=== PATIENT | female | born 1995 | race Caucasian/White ===

== ENCOUNTER 2017-01-28 08:00 | Inpatient (IN) | payer OTHER ==
[2017-01-28] MEDS ORDERED: AMPICILLIN - 2 GM in SODIUM CHLORIDE 100 ML IVPB ONE (09:30)
[2017-01-28 09:45] LABS: BASOPHIL 0.5 % (0-2.0); EOSINOPHIL 0.2 % (0-4.5); MCH 29.9 pg (25.7-33.7); MCHC 33.1 g/dl (32.0-36.0); MEAN CELL VOLUME 90.4 fl (80-96); MEAN PLT VOLUME 8.7 fl (7.5-11.1); NEUTROPHILS 82.7 % (42.8-82.8); PLATELET COUNT 236 K/MM3 (134-434)
[2017-01-28 09:59] VITALS: BMI 22.6
[2017-01-28] MEDS ORDERED: TUBERCULIN PPD 5 TU/0.1ML SYRINGE (IN PATIENT USE ONLY) ID ONE (10:00)
[2017-01-28 10:08] LABS: ANION GAP 9 (8-16); BILIRUBIN,TOTAL 0.2 mg/dL (0.2-1.0); CALCIUM 9.3 mg/dL (8.5-10.1); CO2 22 mmol/L (21-32); CREATININE 0.4 mg/dL (0.55-1.02); GLUCOSE,RANDOM 82 mg/dL (74-106); SGOT/AST 15 U/L (15-37); SGPT/ALT 14 U/L (12-78)
[2017-01-28 10:09] LABS: ALK PHOS 199 U/L (45-117); INR 1.02 (0.82-1.09); PROTHROMBIN TIME (PATIENT) 11.2 SEC (9.98-11.88)
[2017-01-28 10:11] LABS: ACTIVATED PTT 31.1 SECONDS (26.9-34.4)
[2017-01-28] MEDS ORDERED: ELECTROLYTE-148 SOLN 1,000 ML IV SCH (10:15)
[2017-01-28] MEDS ORDERED: PROMETHAZINE HCL 25 MG/1 ML VIAL IVPUSH ONE (10:39)
[2017-01-28] MEDS ORDERED: DEXTROSE 5%-LACTATED RINGERS 1,000 ML IV SCH (10:45)
[2017-01-28] MEDS ORDERED: BUTORPHANOL TARTRATE 1 MG/ML VIAL IVPB ONE (10:45)
--- NOTE | 2017-01-28 11:08 | HP ---
Past Medical History - Admission Chief Complaint: Labor pain History of Present Illness: 21 yo @ 38.6 weeks gestation presents c/o contractions pain. EDC 02/05/17 She denies any rupture of membrane nor vaginal bleeding. History Source: Patient Limitations to Obtaining History: No Limitations - Past Medical History ...: 1 ...Para: 0 ...Term: 0 ...: 0 ...Spon : 0 ...Induced : 0 ...Multiple Gestation: 0 ...LMP: 05/01/17 ... Weeks Gestation by Dates: 38.6 ...EDC by Dates: 02/05/17 ...EDC by Sono: 02/05/17 - Past Surgical History Past Surgical History: Yes: None Hx Myomectomy: No Hx Transabdominal Cerclage: No - Smoking History Smoking history: Never smoked Have you smoked in the past 12 months: No - Alcohol/Substance Use Hx Alcohol Use: No - Social History Usual Living Arrangement: Yes: With Spouse History of Recent Travel: No Home Medications - Allergies Allergies/Adverse Reactions: Allergies Allergy/AdvReac Type Severity Reaction Status Date / Time No Known Allergies Allergy Verified 01/28/17 09:22 - Home Medications Home Medications: Ambulatory Orders Vit No.130/Iron/FA [ Vitamins] 1 each PO DAILY 01/28/17 Family Disease History - Family Disease History Family History: Unremarkable Review of Systems - Review of Systems Constitutional: reports: No Symptoms Eyes: reports: No Symptoms HENT: reports: No Symptoms Neck: reports: No Symptoms Cardiovascular: reports: No Symptoms Respiratory: reports: No Symptoms Gastrointestinal: reports: No Symptoms Genitourinary: reports: Pain Breasts: reports: No Symptoms Reported Musculoskeletal: reports: No Symptoms Integumentary: reports: No Symptoms Neurological: reports: No Symptoms Endocrine: reports: No Symptoms Hematology/Lymphatic: reports: No Symptoms Psychiatric: reports: No Symptoms Pain Intensity: 7 Physical Exam - Maternity Vital Signs: Vital Signs Temperature 98.2 F 01/28/17 10:00 Pulse Rate 97 H 01/28/17 10:00 Respiratory Rate 18 01/28/17 10:00 Blood Pressure 122/71 01/28/17 10:00 O2 Sat by Pulse Oximetry (%) Constitutional: Yes: Well Nourished Eyes: Yes: Conjunctiva Clear HENT: Yes: Atraumatic Neck: Yes: Supple Cardiovascular: Yes: Regular Rate and Rhythm Lungs: Clear to auscultation Breast(s): Yes: WNL - Abdominal Exam/OB Number of Fetuses: Single Presentation: Vertex Contractions: Yes Intensity: Moderate - Vaginal Exam/OB Vaginal Bleediing: No Speculum Exam: No Dilatation (cm): 4 Effacement (%): 80 Amniotic Membrane Status: Intact Station: -2 - Physical Exam Musculoskeletal: Yes: WNL Extremities: Yes: WNL ...Motor Strength: WNL Psychiatric: Yes: Alert, Oriented - Labs Lab Results: CBC, BMP 01/28/17 09:30 01/28/17 09:30 Problem List - Problems (1) Pain during labor Code(s): O99.89 - OTH DISEASES AND CONDITIONS COMPL PREG/CHLDBRTH R52 - PAIN, UNSPECIFIED Assessment/Plan Active Labor GBS prophylaxis Analgesia PRN pain Pitocin augmentation Anticpate
[2017-01-28] MEDS ORDERED: OXYTOCIN 15 UNITS/ LR 250 ML 250 ML IVPB SCH (11:15)
[2017-01-28 11:35] LABS: HIV 1 & 2 AB NEGATIVE; HIV 1 AGp24 NEGATIVE
[2017-01-28] MEDS: AMPICILLIN - 1 GM in SODIUM CHLORIDE 100 ML IVPB SCH ×3 (13:30→21:30)
[2017-01-28] MEDS ORDERED: FENTANYL/BUPIVACAINE/NS/PF - PCEA - 50 ML DISP.SYRIN EP SCH (15:15)
[2017-01-28] MEDS ORDERED: METHYLERGONOVINE MALEATE 0.2 MG/1 ML AMP IM PRN (20:29)
[2017-01-28] MEDS ORDERED: BENZOCAINE 28 GM HEMORRHOIDAL OINTMENT TP PRN (20:29)
[2017-01-28] MEDS ORDERED: BENZOCAINE 20% 57 GM BOTTLE TP PRN (20:29)
[2017-01-28] MEDS ORDERED: BISACODYL 10 MG SUPP.RECT RC PRN (20:29)
[2017-01-28] MEDS ORDERED: WITCH HAZEL 50% (TUCKS) 40 PAD/JAR PAD TP PRN (20:29)
[2017-01-28] MEDS ORDERED: D5W-LR W/ 20 UNITS OXYTOCIN 1,000 ML IV SCH (20:30)
--- NOTE | 2017-01-28 20:31 | PN ---
Delivery - Delivery Vaginal Delivery: Vacuum Extraction Type of Anesthesia: Epidural EBL (cc): 250 Delivery, Single - Feeding Plan Initial Plan: Exclusive throughout hospitalization Remarks - Remarks Remarks: Mother exhausted after pushing for 2 hours. Fully dilated head at +1 position. Midline episiotomy performed Vacuum applied assuring no surrounding tissue trapped under the vacuum. After 3 pulls and 2 Pop offs head delivered. Nuchal cord x 1 clamped and cut. Baby handed to waiting neonatology nurses. Placenta expelled spontaneously intact. Midline episiotomy repaired in layers with 2.0 Chromic.
--- NOTE | 2017-01-28 20:34 | DS ---
Physical Exam-[employer] Vital Signs: Vital Signs Temperature 99.6 F 01/28/17 18:00 Pulse Rate 103 H 01/28/17 18:45 Respiratory Rate 18 01/28/17 18:45 Blood Pressure 134/85 01/28/17 18:45 O2 Sat by Pulse Oximetry (%) 98 01/28/17 18:45 Constitutional: Yes: Well Nourished Eyes: Yes: Conjunctiva Clear HENT: Yes: Atraumatic Neck: Yes: Supple, Trachea Midline Cardiovascular: Yes: Regular Rate and Rhythm Respiratory: Yes: Regular, CTA Bilaterally Gastrointestinal: Yes: Normal Bowel Sounds ...Rectal Exam: Yes: WNL Renal/: Yes: WNL Pelvis: Yes: WNL External Genitalia: Yes: Normal Vaginal Exam: Yes: Normal Cervix: Yes: Normal Uterus: Yes: Normal ....Post : Yes: Uterus firm, Moderate lochia serosa Breast(s): Yes: WNL (No engorgement) Neurological: Yes: Alert, Oriented Psychiatric: Yes: Alert, Oriented Labs: CBC, BMP 01/28/17 09:30 01/28/17 09:30 Delivery - Delivery Vaginal Delivery: Spontaneous Type of Anesthesia: Epidural Delivery, Single - Feeding Plan Initial Plan: Exclusive throughout hospitalization Remarks - Remarks Remarks: of a live Nose / oropharynx suctioned @ perineum Cord clamped and cut Placenta expelled spontaneously intact. Discharge Summary Reason For Visit: LABOR Current Active Problems Pain during labor (Acute) Procedures: Principal: Vacuum delivery Hospital Course: Routine care Condition: Good - Instructions Diet, Activity, Other Instructions: Regular diet No douching, no sexual intercourse x 6 weeks F/U in clinic in 6 weeks Disposition: HOME - Home Medications Comprehensive Discharge Medication List: Ambulatory Orders Vit No.130/Iron/FA [ Vitamins] 1 each PO DAILY 01/28/17
[2017-01-28] MEDS: oxyCODONE HCL 5 MG TABLET PO PRN (21:35)
[2017-01-28] MEDS: ACETAMINOPHEN 325 MG TABLET (FP) PO PRN (23:20)
[2017-01-28] MEDS: IBUPROFEN 600 MG TABLET (FP) PO PRN (23:20)
[2017-01-29] MEDS: AMPICILLIN - 1 GM in SODIUM CHLORIDE 100 ML IVPB SCH (01:30)
[2017-01-29] MEDS: oxyCODONE HCL 5 MG TABLET PO PRN ×2 (06:27→10:39)
[2017-01-29] MEDS: IBUPROFEN 600 MG TABLET (FP) PO PRN ×4 (06:30→21:04)
[2017-01-29 08:47] LABS: MCH 29.5 pg (25.7-33.7); MCHC 32.9 g/dl (32.0-36.0); MEAN CELL VOLUME 89.7 fl (80-96); MEAN PLT VOLUME 8.7 fl (7.5-11.1); PLATELET COUNT 228 K/MM3 (134-434); RDW 14.3 % (11.6-15.6); WHITE BLOOD COUNT 23.4 K/mm3 (4.0-10.0)
[2017-01-29] MEDS: PRENATAL VITAMINS W/ FOLIC ACID TABLET (FP) PO SCH (09:54)
[2017-01-29] MEDS: FERROUS SO4 325 MG TABLET (FP) PO SCH ×3 (09:55→17:50)
[2017-01-29 12:41] LABS: PLATELET ESTIMATE ADEQUATE (NORMAL)
--- NOTE | 2017-01-29 13:31 | PN ---
Post Progress Note - Subjective Subjective: 21 yo Para 1, status post vacuum delivery, seen and evaluated. She's afebrile. She's bottle feeding. Post Day: 1 Type of Delivery: Vacuum Assist Vag Del Vital Signs: Vital Signs Temperature 98.0 F 01/29/17 09:00 Pulse Rate 88 01/29/17 09:00 Respiratory Rate 20 01/29/17 09:00 Blood Pressure 119/76 01/29/17 09:00 O2 Sat by Pulse Oximetry (%) 97 01/28/17 20:15 Breast Exam: Yes: Soft Uterus: Yes: Fundus Firm Abdomen/GI: Yes: Abdomen soft, Tolerating PO Lochia: Yes: Rubra Lochia, amount: Moderate Extremities: Yes: Calves non-tender Perineum: Yes: Episiotomy (Swollen perineum) Activity: Ambulating - Labs Labs: CBC WBC 23.4 K/mm3 (4.0-10.0) H D 01/29/17 08:10 RBC 4.02 M/mm3 (3.60-5.2) 01/29/17 08:10 Hgb 11.9 GM/dL (10.7-15.3) 01/29/17 08:10 Hct 36.1 % (32.4-45.2) 01/29/17 08:10 MCV 89.7 fl (80-96) 01/29/17 08:10 MCHC 32.9 g/dl (32.0-36.0) 01/29/17 08:10 RDW 14.3 % (11.6-15.6) 01/29/17 08:10 Plt Count 228 K/MM3 (134-434) 01/29/17 08:10 MPV 8.7 fl (7.5-11.1) 01/29/17 08:10 Neutrophils % 83.0 % (42.8-82.8) H 01/29/17 08:10 Lymphocytes % 14.0 % (8-40) 01/29/17 08:10 Monocytes % 3.0 % (3.8-10.2) L 01/29/17 08:10 Eosinophils % 0.2 % (0-4.5) 01/28/17 09:30 Basophils % 0.5 % (0-2.0) 01/28/17 09:30 Differential Comment Manual diff done 01/29/17 08:10 Platelet Estimate Adequate (NORMAL) 01/29/17 08:10 RBC Morphology Appears normal 01/29/17 08:10 Morphology Comment Slide scanned 01/29/17 08:10 Problem List - Problems (1) Pain during labor Code(s): O99.89 - OTH DISEASES AND CONDITIONS COMPL PREG/CHLDBRTH R52 - PAIN, UNSPECIFIED Assessment/Plan Status post vacuum delivery Swollen perineum Leukocytosis Shannon catheter IV Ancef
[2017-01-29] MEDS: ACETAMINOPHEN 325 MG TABLET (FP) PO PRN ×2 (16:22→21:02)
[2017-01-29] MEDS: CEFAZOLIN (PRE-DOCKED) 50 ML IVPB SCH (17:51)
[2017-01-29] MEDS: SENNOSIDES/DOCUSATE COMBO (SENNA PLUS) TABLET (UD) PO PRN (21:05)
[2017-01-30] MEDS: CEFAZOLIN (PRE-DOCKED) 50 ML IVPB SCH ×2 (01:25→09:31)
[2017-01-30] MEDS: IBUPROFEN 600 MG TABLET (FP) PO PRN ×5 (05:25→21:36)
[2017-01-30] MEDS: ACETAMINOPHEN 325 MG TABLET (FP) PO PRN ×5 (05:25→21:37)
[2017-01-30] MEDS: FERROUS SO4 325 MG TABLET (FP) PO SCH ×3 (07:49→17:42)
--- NOTE | 2017-01-30 08:40 | PN ---
Post Progress Note - Subjective Subjective: 21 yo Para 1 status post vacuum delivery, seen and evaluated. She c/o perineal pain. She tolerates PO diet. Type of Delivery: Vacuum Assist Vag Del Vital Signs: Vital Signs Temperature 98.7 F 01/30/17 05:29 Pulse Rate 82 01/30/17 05:29 Respiratory Rate 20 01/30/17 05:29 Blood Pressure 112/69 01/30/17 05:29 O2 Sat by Pulse Oximetry (%) 97 01/28/17 20:15 Breast Exam: Yes: Soft Uterus: Yes: Fundus Firm Abdomen/GI: Yes: Abdomen soft, Tolerating PO Lochia: Yes: Rubra Lochia, amount: Small Extremities: Yes: Calves non-tender Perineum: Yes: Episiotomy (Swollen perineum) Activity: Other (She's lying in bed) - Labs Labs: CBC WBC 23.4 K/mm3 (4.0-10.0) H D 01/29/17 08:10 RBC 4.02 M/mm3 (3.60-5.2) 01/29/17 08:10 Hgb 11.9 GM/dL (10.7-15.3) 01/29/17 08:10 Hct 36.1 % (32.4-45.2) 01/29/17 08:10 MCV 89.7 fl (80-96) 01/29/17 08:10 MCHC 32.9 g/dl (32.0-36.0) 01/29/17 08:10 RDW 14.3 % (11.6-15.6) 01/29/17 08:10 Plt Count 228 K/MM3 (134-434) 01/29/17 08:10 MPV 8.7 fl (7.5-11.1) 01/29/17 08:10 Neutrophils % 83.0 % (42.8-82.8) H 01/29/17 08:10 Lymphocytes % 14.0 % (8-40) 01/29/17 08:10 Monocytes % 3.0 % (3.8-10.2) L 01/29/17 08:10 Eosinophils % 0.2 % (0-4.5) 01/28/17 09:30 Basophils % 0.5 % (0-2.0) 01/28/17 09:30 Differential Comment Manual diff done 01/29/17 08:10 Platelet Estimate Adequate (NORMAL) 01/29/17 08:10 RBC Morphology Appears normal 01/29/17 08:10 Morphology Comment Slide scanned 01/29/17 08:10 Problem List - Problems (1) Pain during labor Code(s): O99.89 - OTH DISEASES AND CONDITIONS COMPL PREG/CHLDBRTH R52 - PAIN, UNSPECIFIED Assessment/Plan Status post vacuum delivery Swollen perineum Status post IV antibiotic Repeat CBC Keep Shannon catheter Ambulation Re-evaluate later
[2017-01-30] MEDS: PRENATAL VITAMINS W/ FOLIC ACID TABLET (FP) PO SCH (09:30)
[2017-01-30] MEDS ORDERED: DIPHTH,PERTUSS(ACELL),TET 0.5 ML DISP.SYRIN IM ONE (10:00)
[2017-01-30 10:06] LABS: BASOPHIL 0.3 % (0-2.0); EOSINOPHIL 0.7 % (0-4.5); MCH 30.3 pg (25.7-33.7); MCHC 33.5 g/dl (32.0-36.0); MEAN CELL VOLUME 90.5 fl (80-96); MEAN PLT VOLUME 8.3 fl (7.5-11.1); NEUTROPHILS 79.1 % (42.8-82.8); PLATELET COUNT 205 K/MM3 (134-434); RDW 14.2 % (11.6-15.6); WHITE BLOOD COUNT 13.8 K/mm3 (4.0-10.0)
[2017-01-30] MEDS: SENNOSIDES/DOCUSATE COMBO (SENNA PLUS) TABLET (UD) PO PRN (21:36)
[2017-01-31] MEDS: ACETAMINOPHEN 325 MG TABLET (FP) PO PRN ×5 (02:53→21:54)
[2017-01-31] MEDS: IBUPROFEN 600 MG TABLET (FP) PO PRN ×4 (02:54→21:53)
--- NOTE | 2017-01-31 07:07 | PN ---
Post Progress Note - Subjective Subjective: 21 yo status post vacuum delivery, seen and evaluated. Doing well except for swollen perineum. Post Day: 3 Type of Delivery: Vacuum Assist Vag Del Vital Signs: Vital Signs Temperature 98.5 F 01/30/17 22:00 Pulse Rate 107 H 01/30/17 22:00 Respiratory Rate 20 01/30/17 22:00 Blood Pressure 115/70 01/30/17 22:00 O2 Sat by Pulse Oximetry (%) 97 01/28/17 20:15 Breast Exam: Yes: Soft Uterus: Yes: Fundus Firm Abdomen/GI: Yes: Abdomen soft, Tolerating PO Lochia: Yes: Rubra Lochia, amount: Small Extremities: Yes: Calves non-tender Perineum: Yes: Episiotomy (Healing wound but swollen vulva) Activity: Other (She's lying in bed with pfeiffer catheter in place) - Labs Labs: CBC WBC 13.8 K/mm3 (4.0-10.0) H D 01/30/17 09:30 RBC 3.42 M/mm3 (3.60-5.2) L 01/30/17 09:30 Hgb 10.4 GM/dL (10.7-15.3) L D 01/30/17 09:30 Hct 30.9 % (32.4-45.2) L 01/30/17 09:30 MCV 90.5 fl (80-96) 01/30/17 09:30 MCHC 33.5 g/dl (32.0-36.0) 01/30/17 09:30 RDW 14.2 % (11.6-15.6) 01/30/17 09:30 Plt Count 205 K/MM3 (134-434) 01/30/17 09:30 MPV 8.3 fl (7.5-11.1) 01/30/17 09:30 Neutrophils % 79.1 % (42.8-82.8) 01/30/17 09:30 Lymphocytes % 15.4 % (8-40) 01/30/17 09:30 Monocytes % 4.5 % (3.8-10.2) 01/30/17 09:30 Eosinophils % 0.7 % (0-4.5) D 01/30/17 09:30 Basophils % 0.3 % (0-2.0) 01/30/17 09:30 Differential Comment Manual diff done 01/29/17 08:10 Platelet Estimate Adequate (NORMAL) 01/29/17 08:10 RBC Morphology Appears normal 01/29/17 08:10 Morphology Comment Slide scanned 01/29/17 08:10 Problem List - Problems (1) Pain during labor Code(s): O99.89 - OTH DISEASES AND CONDITIONS COMPL PREG/CHLDBRTH R52 - PAIN, UNSPECIFIED (2) Status post vacuum-assisted vaginal delivery Code(s): Z87.42 - PERSONAL HISTORY OF OTH DISEASES OF THE FEMALE GENITAL TRACT (3) Swelling of perineal tissue Code(s): R22.2 - LOCALIZED SWELLING, MASS AND LUMP, TRUNK Assessment/Plan Status post vacuum assisted vaginal delivery. Swollen perineal tissue D/C Pfeiffer catheter Ambulation Continue observation
[2017-01-31] MEDS: FERROUS SO4 325 MG TABLET (FP) PO SCH ×3 (08:24→17:30)
[2017-01-31 08:28] LABS: BASOPHIL 0.4 % (0-2.0); EOSINOPHIL 1.4 % (0-4.5); MCH 30.4 pg (25.7-33.7); MCHC 33.8 g/dl (32.0-36.0); MEAN CELL VOLUME 90.1 fl (80-96); MEAN PLT VOLUME 8.2 fl (7.5-11.1); NEUTROPHILS 76.2 % (42.8-82.8); PLATELET COUNT 245 K/MM3 (134-434); WHITE BLOOD COUNT 10.7 K/mm3 (4.0-10.0)
[2017-01-31] MEDS: PRENATAL VITAMINS W/ FOLIC ACID TABLET (FP) PO SCH (09:32)
[2017-01-31] MEDS: SENNOSIDES/DOCUSATE COMBO (SENNA PLUS) TABLET (UD) PO PRN (21:53)
[2017-02-01] MEDS: ACETAMINOPHEN 325 MG TABLET (FP) PO PRN ×3 (02:36→14:02)
[2017-02-01] MEDS: IBUPROFEN 600 MG TABLET (FP) PO PRN ×2 (02:36→14:02)
--- NOTE | 2017-02-01 07:11 | PN ---
Post Progress Note - Subjective Subjective: pt feels better voiding without difficulty .. no c/o perineal pain Post Day: 4 Type of Delivery: Vacuum Assist Vag Del Vital Signs: Vital Signs Temperature 97.7 F 01/31/17 21:31 Pulse Rate 86 01/31/17 21:31 Respiratory Rate 20 01/31/17 21:31 Blood Pressure 110/79 01/31/17 21:31 O2 Sat by Pulse Oximetry (%) 97 01/28/17 20:15 Breast Exam: Yes: Soft, Other (BF ). No: Engorged Uterus: Yes: Fundus Firm, Fundus below umbilicus, Non-tender Lochia: Yes: Rubra Lochia, amount: Moderate Extremities: Yes: Calves non-tender Perineum: Yes: Episiotomy (vulva edema markedly less . still present ) Activity: Ambulating - Labs Labs: CBC WBC 10.7 K/mm3 (4.0-10.0) H 01/31/17 07:30 RBC 3.80 M/mm3 (3.60-5.2) 01/31/17 07:30 Hgb 11.6 GM/dL (10.7-15.3) D 01/31/17 07:30 Hct 34.3 % (32.4-45.2) 01/31/17 07:30 MCV 90.1 fl (80-96) 01/31/17 07:30 MCHC 33.8 g/dl (32.0-36.0) 01/31/17 07:30 RDW 14.0 % (11.6-15.6) 01/31/17 07:30 Plt Count 245 K/MM3 (134-434) 01/31/17 07:30 MPV 8.2 fl (7.5-11.1) 01/31/17 07:30 Neutrophils % 76.2 % (42.8-82.8) 01/31/17 07:30 Lymphocytes % 17.4 % (8-40) 01/31/17 07:30 Monocytes % 4.6 % (3.8-10.2) 01/31/17 07:30 Eosinophils % 1.4 % (0-4.5) D 01/31/17 07:30 Basophils % 0.4 % (0-2.0) 01/31/17 07:30 Differential Comment Manual diff done 01/29/17 08:10 Platelet Estimate Adequate (NORMAL) 01/29/17 08:10 RBC Morphology Appears normal 01/29/17 08:10 Morphology Comment Slide scanned 01/29/17 08:10 Assessment/Plan stable plan discharge today
[2017-02-01 08:03] VITALS: BP 114/67; PULSE 81; TEMP 98.6
[2017-02-01] MEDS: PRENATAL VITAMINS W/ FOLIC ACID TABLET (FP) PO SCH (09:11)
[2017-02-01] MEDS: FERROUS SO4 325 MG TABLET (FP) PO SCH ×3 (09:11→17:02)
== END 2017-02-01 18:30 | disposition home or self-care (01) | DRG 560 ==
LOC: JDEL 08:00 → JLDR 08:40 → J3W 23:30
PROVIDERS: ADMIT Obstetrics & Gynecology; ATTEND Obstetrics & Gynecology
PROC: 0W8NXZZ Division of Female Perineum, External Approach (ICD-10-PCS; principal; 2017-01-28)
PROC: 10D07Z6 Extraction of Products of Conception, Vacuum, Via Natural or Artificial Opening (ICD-10-PCS; 2017-01-28)
PROC: 10E0XZZ Delivery of Products of Conception, External Approach (ICD-10-PCS; 2017-01-28)
DX: O75.81 Maternal exhaustion complicating labor and delivery (principal); O69.81X0 Labor and delivery complicated by cord around neck, without compression, not applicable or unspecified; Z3A.38 38 weeks gestation of pregnancy; Z37.0 Single live birth
CPT/HCPCS: 36415; 59409; 80053; 85025; 85610; 85730; 86593; 86762; 86850; 86900; 86901; 87340; 87389; 90715

== ENCOUNTER 2020-11-03 10:55 | Observation (INO) | payer OTHER ==
[2020-11-03] MEDS ORDERED: SODIUM CHLORIDE 1,000 ML IV SCH (12:15)
[2020-11-03 13:17] LABS: BASO % 0.3 % (0-2.0); EOS % 0.7 % (0-4.5); HEMATOCRIT 17.4 % (32.4-45.2); LYMPH % 19.2 % (8-40); MCH 23.4 pg (25.7-33.7); MCHC 31.1 g/dl (32.0-36.0); MEAN CELL VOLUME 75.1 fl (80-96); MEAN PLT VOLUME 8.1 fl (7.5-11.1); MONO % 7.3 % (3.8-10.2); NEUT % 72.5 % (42.8-82.8); PLATELET COUNT 314 K/MM3 (134-434); RBC 2.32 M/mm3 (3.60-5.2); RDW 18.6 % (11.6-15.6); WHITE BLOOD COUNT 10.9 K/mm3 (4.0-10.0)
[2020-11-03 13:19] LABS: HEMOGLOBIN 5.4 GM/dL (10.7-15.3)
[2020-11-03 13:29] LABS: POTASSIUM 3.8 mmol/L (3.5-5.1)
[2020-11-03 13:34] LABS: ALBUMIN 2.6 g/dl (3.4-5.0); BLOOD UREA NITROGEN 5.8 mg/dL (7-18); CALCIUM 8.4 mg/dL (8.5-10.1)
[2020-11-03 13:37] LABS: CREATININE 0.3 mg/dL (0.55-1.3)
[2020-11-03 13:39] LABS: BILIRUBIN,TOTAL 0.4 mg/dL (0.2-1); TOT PROT 6.4 g/dl (6.4-8.2)
[2020-11-03 18:11] VITALS: BMI 24.0
[2020-11-03 21:01] VITALS: BP 112/70; PULSE 102; TEMP 98.3
[2020-11-03 21:22] LABS: BASO % 0.3 % (0-2.0); EOS % 0.4 % (0-4.5); HEMATOCRIT 24.6 % (32.4-45.2); HEMOGLOBIN 7.9 GM/dL (10.7-15.3); LYMPH % 16.4 % (8-40); MCH 25.8 pg (25.7-33.7); MEAN CELL VOLUME 80.7 fl (80-96); MEAN PLT VOLUME 8.5 fl (7.5-11.1); NEUT % 76.9 % (42.8-82.8); PLATELET COUNT 252 K/MM3 (134-434); RBC 3.05 M/mm3 (3.60-5.2); RDW 18.9 % (11.6-15.6); WHITE BLOOD COUNT 8.2 K/mm3 (4.0-10.0)
== END 2020-11-03 21:15 | disposition home or self-care (01) ==
LOC: JDEL 10:55 → JLDR 17:00
PROVIDERS: ADMIT Obstetrics & Gynecology; ATTEND Obstetrics & Gynecology
DX: O60.00 Preterm labor without delivery, unspecified trimester (principal)
CPT/HCPCS: 36415; 36430; 59025; 80053; 85025; 86850; 86900; 86901; 86922; 99285-25; G0378; P9058

== ENCOUNTER 2020-12-02 04:49 | Day surgery (SDC) | payer OTHER ==
[2020-12-02] MEDS ORDERED: FERRIC CARBOXYMALTOSE 750 MG in SODIUM CHLORIDE 250 ML IVPB ONE (10:00)
[2020-12-02 14:40] VITALS: TEMP 98.6
[2020-12-02 15:15] VITALS: BP 104/58; PULSE 104
== END 2020-12-02 15:15 | disposition home or self-care (01) ==
LOC: JINFUSION 04:49
PROVIDERS: ATTEND Obstetrics & Gynecology
PROC: 3E033GC Introduction of Other Therapeutic Substance into Peripheral Vein, Percutaneous Approach (ICD-10-PCS; principal; 2020-12-02)
DX: D50.9 Iron deficiency anemia, unspecified (principal)
CPT/HCPCS: 96365; J1439

== ENCOUNTER 2020-12-09 05:31 | Day surgery (SDC) | payer OTHER ==
[2020-12-09] MEDS ORDERED: FERRIC CARBOXYMALTOSE 750 MG in SODIUM CHLORIDE 250 ML IVPB ONE (10:00)
[2020-12-09 15:07] VITALS: BP 111/62; PULSE 105; TEMP 98.3
== END 2020-12-09 15:31 | disposition home or self-care (01) ==
LOC: JINFUSION 05:31
PROVIDERS: ATTEND Obstetrics & Gynecology
PROC: 3E033GC Introduction of Other Therapeutic Substance into Peripheral Vein, Percutaneous Approach (ICD-10-PCS; principal; 2020-12-09)
DX: O99.011 Anemia complicating pregnancy, first trimester (principal); D50.9 Iron deficiency anemia, unspecified
CPT/HCPCS: 96365; J1439

== ENCOUNTER 2021-02-02 15:35 | Inpatient (IN) | payer OTHER ==
[2021-02-02] MEDS ORDERED: BUTORPHANOL TARTRATE 1 MG/ML VIAL IVPB ONE (16:22)
[2021-02-02] MEDS ORDERED: PROMETHAZINE HCL 25 MG/1 ML VIAL IVPUSH ONE (16:22)
[2021-02-02] MEDS ORDERED: DEXTROSE 5%-LACTATED RINGERS 1,000 ML IV SCH (16:30)
[2021-02-02] MEDS ORDERED: OXYTOCIN 30 UNITS in 0.9% NS 30 UNIT/500 ML INFUS.BAG IVPB ONE (18:07)
[2021-02-02 18:12] VITALS: BMI 24.9
[2021-02-02 18:20] LABS: BASO % 0.3 % (0-2.0); EOS % 0.4 % (0-4.5); HEMATOCRIT 37.7 % (32.4-45.2); HEMOGLOBIN 12.8 GM/dL (10.7-15.3); LYMPH % 12.6 % (8-40); MCH 31.8 pg (25.7-33.7); MEAN CELL VOLUME 93.3 fl (80-96); MEAN PLT VOLUME 9.7 fl (7.5-11.1); MONO % 4.9 % (3.8-10.2); NEUT % 81.8 % (42.8-82.8); PLATELET COUNT 175 K/MM3 (134-434); RBC 4.04 M/mm3 (3.60-5.2); WHITE BLOOD COUNT 11.9 K/mm3 (4.0-10.0)
[2021-02-02 18:23] LABS: INR 1.04 (0.83-1.09); PROTHROMBIN TIME (PATIENT) 12.6 SEC (9.7-13.0)
[2021-02-02 18:25] LABS: ACTIVATED PTT 29.3 SECONDS (25.2-36.5)
[2021-02-02] MEDS ORDERED: OXYTOCIN 30 UNITS in 0.9% NS 30 UNIT/500 ML INFUS.BAG IVPB SCH (18:30)
[2021-02-02 18:40] LABS: CALCIUM 8.6 mg/dL (8.5-10.1)
[2021-02-02 18:41] LABS: BLOOD UREA NITROGEN 5.9 mg/dL (7-18)
[2021-02-02 18:44] LABS: CREATININE 0.4 mg/dL (0.55-1.3)
[2021-02-03] MEDS ORDERED: ELECTROLYTE-148 SOLN 1,000 ML IV ONE
[2021-02-03] MEDS ORDERED: BUPIVACAINE HCL/PF 0.25% (2.5MG/ML) 10 ML VIAL ONE ×2 (00:41→05:22)
[2021-02-03] MEDS ORDERED: FENTANYL/BUPIVACAINE/NS/PF - PCEA - 50 ML DISP.SYRIN EP ONE ×2 (00:41→05:22)
[2021-02-03] MEDS ORDERED: PCA PUMP NR ONE ×2 (00:42→10:51)
[2021-02-03] MEDS ORDERED: NALOXONE HCL 0.4 MG/ML VIAL IVPUSH PRN (01:05)
[2021-02-03] MEDS ORDERED: FENTANYL/BUPIVACAINE/NS/PF - PCEA - 50 ML DISP.SYRIN EP SCH (01:15)
[2021-02-03] MEDS ORDERED: ELECTROLYTE-148 SOLN 1,000 ML IV SCH (02:00)
[2021-02-03] MEDS ORDERED: LIDOCAINE HCL/EPINEPHRINE/PF 10 ML VIAL ONE (07:15)
[2021-02-03] MEDS ORDERED: OXYTOCIN 20 UNITS in 0.9% NS 20 UNIT/1,000 ML INFUS.BAG IV ONE (07:18)
[2021-02-03] MEDS ORDERED: LIDOCAINE HCL 1% PRESERVATIVE FREE - 30ML VIAL ONE (07:18)
[2021-02-03] MEDS ORDERED: BISACODYL 10 MG SUPP.RECT RC PRN (10:00)
[2021-02-03] MEDS ORDERED: OXYTOCIN 20 UNITS in 0.9% NS 20 UNIT/1,000 ML INFUS.BAG IV SCH (10:00)
[2021-02-03] MEDS ORDERED: METHYLERGONOVINE MALEATE 0.2 MG/1 ML AMP IM PRN (10:00)
[2021-02-03] MEDS ORDERED: BENZOCAINE 20% 57 GM BOTTLE TP PRN (10:00)
[2021-02-03] MEDS ORDERED: WITCH HAZEL 50% (TUCKS) 40 PAD/JAR PAD TP PRN (10:00)
[2021-02-03] MEDS ORDERED: BENZOCAINE 28 GM HEMORRHOIDAL OINTMENT TP PRN (10:00)
[2021-02-03 10:24] LABS: CORD BASE EXCESS -7.4 mmol/L (0-2); CORD HCO3 20.9 mmHg (20-29); CORD pH 7.214 (7.14-7.44)
[2021-02-03 10:29] LABS: CORD BASE EXCESS -7.6 mmol/L (0-2); CORD HCO3 20.3 mmHg (20-29); CORD PCO2 50.2 mmHg (30-78); CORD pH 7.225 (7.14-7.44)
[2021-02-03] MEDS: IBUPROFEN 600 MG TABLET (FP) PO PRN ×2 (10:30→14:26)
[2021-02-03] MEDS: PRENATAL VITAMINS W/ FOLIC ACID TABLET (FP) PO SCH (11:00)
[2021-02-03] MEDS: ACETAMINOPHEN 325 MG TABLET (FP) PO PRN ×3 (11:02→17:56)
[2021-02-03] MEDS ORDERED: oxyCODONE HCL 5 MG TABLET ONE (11:21)
[2021-02-03] MEDS: oxyCODONE HCL 5 MG TABLET PO PRN ×2 (11:40→17:54)
[2021-02-03] MEDS: FERROUS SO4 325 MG TABLET (FP) PO SCH (17:20)
[2021-02-04] MEDS: ACETAMINOPHEN 325 MG TABLET (FP) PO PRN ×2 (04:17→14:36)
[2021-02-04] MEDS: oxyCODONE HCL 5 MG TABLET PO PRN (04:18)
[2021-02-04] MEDS: IBUPROFEN 600 MG TABLET (FP) PO PRN ×2 (04:18→14:37)
[2021-02-04 08:42] LABS: BASO % 0.2 % (0-2.0); EOS % 0.6 % (0-4.5); HEMATOCRIT 35.2 % (32.4-45.2); HEMOGLOBIN 12.1 GM/dL (10.7-15.3); LYMPH % 15.1 % (8-40); MCHC 34.2 g/dl (32.0-36.0); MEAN CELL VOLUME 93.5 fl (80-96); MEAN PLT VOLUME 9.3 fl (7.5-11.1); MONO % 4.2 % (3.8-10.2); NEUT % 79.9 % (42.8-82.8); PLATELET COUNT 180 K/MM3 (134-434); RBC 3.76 M/mm3 (3.60-5.2); RDW 14.3 % (11.6-15.6); WHITE BLOOD COUNT 17.6 K/mm3 (4.0-10.0)
[2021-02-04] MEDS: PRENATAL VITAMINS W/ FOLIC ACID TABLET (FP) PO SCH (09:37)
[2021-02-04] MEDS: FERROUS SO4 325 MG TABLET (FP) PO SCH ×2 (09:37→18:15)
[2021-02-04] MEDS ORDERED: FLU VACCINE (FLULAVAL) PF 60 MCG/0.5 ML SYRINGE 2020-2021 IM ONE (10:00)
[2021-02-04] MEDS ORDERED: SENNOSIDES/DOCUSATE COMBO (SENNA PLUS) TABLET (UD) PO PRN (22:00)
[2021-02-05] MEDS: IBUPROFEN 600 MG TABLET (FP) PO PRN (00:13)
[2021-02-05] MEDS: ACETAMINOPHEN 325 MG TABLET (FP) PO PRN (00:13)
[2021-02-05] MEDS: FERROUS SO4 325 MG TABLET (FP) PO SCH (09:03)
[2021-02-05] MEDS: PRENATAL VITAMINS W/ FOLIC ACID TABLET (FP) PO SCH (09:04)
[2021-02-05 09:05] VITALS: BP 116/68; PULSE 82; TEMP 98.1
== END 2021-02-05 13:10 | disposition home or self-care (01) | DRG 560 ==
LOC: JLDR 15:35 → J3W 02-03 11:50
PROVIDERS: ADMIT Obstetrics & Gynecology; ATTEND Obstetrics & Gynecology
PROC: 0U7C7ZZ Dilation of Cervix, Via Natural or Artificial Opening (ICD-10-PCS; principal; 2021-02-02)
PROC: 3E033VJ Introduction of Other Hormone into Peripheral Vein, Percutaneous Approach (ICD-10-PCS; 2021-02-02)
PROC: 10907ZC Drainage of Amniotic Fluid, Therapeutic from Products of Conception, Via Natural or Artificial Opening (ICD-10-PCS; 2021-02-02)
PROC: 0W8NXZZ Division of Female Perineum, External Approach (ICD-10-PCS; 2021-02-03)
PROC: 10E0XZZ Delivery of Products of Conception, External Approach (ICD-10-PCS; 2021-02-03)
DX: O69.81X0 Labor and delivery complicated by cord around neck, without compression, not applicable or unspecified (principal); Z3A.39 39 weeks gestation of pregnancy; Z37.0 Single live birth; Z86.2 Personal history of diseases of the blood and blood-forming organs and certain disorders involving the immune mechanism
CPT/HCPCS: 36415; 36600; 59409; 80048; 82803; 85025; 85610; 85730; 86780; 86850; 86900; 86901; C9803; G0008; Q2036; U0003; U0005